=== PATIENT | male | born 1955 | race African-American/Black ===

== ENCOUNTER → 2021-09-23 | Day surgery (SDC) | payer OTHER, MEDICARE ==
[~2021-09-23] VITALS: Ht 175.3 cm; Wt 79.4 kg
[~2021-09-23] MED LIST: FLOMAX0.4 MG PO; LISINOPRIL-HCT1 EAC2 PO; PRILOSEC20 MG PO
[2021-09-23 09:43] LABS: HCT 46.1 % (42.0-52.0); HGB 14.8 g/dl (13.2-18.0); MCH 26.9 pg (25.0-31.0); MCHC 32.1 g/dL (32.0-36.0); MCV 83.8 fL (78.0-100.0); MPV 11.6 fL (6.0-9.5); RBC 5.5 M/uL (4.70-6.00); RDW 11.9 % (11.5-14.0); WBC 5.1 K/uL (4.0-10.5)
[2021-09-23 10:07] LABS: ALBUMIN 4.1 g/dL (3.4-5.0); BILIRUBIN - TOTAL 0.7 mg/dL (0.2-1.0); BUN/CREAT RATIO (CALC) 13.1 RATIO; CREATININE 0.99 mg/dL (0.67-1.17); POTASSIUM 3.9 mmol/L (3.5-5.1); TOTAL PROTEIN 8.1 g/dL (6.4-8.2)
== END | disposition home or self-care (01) ==
LOC: FAS 08:47
PROVIDERS: Surgery
DX: Z12.11 Encounter for screening for malignant neoplasm of colon (principal); D12.3 Benign neoplasm of transverse colon; D12.0 Benign neoplasm of cecum; I10 Essential (primary) hypertension; Z86.010 Personal history of colon polyps; Z79.899 Other long term (current) drug therapy
CPT/HCPCS: 36415; 80053; J2704; J7120